=== PATIENT | male | born 1975 | race American Indian/Alaskan Native ===

== ENCOUNTER 2018-04-04 14:08 | Emergency (ER) | payer SELFPAY ==
[2018-04-04 14:17] VITALS: PULSE 84; RESP 18
[2018-04-04] MEDS ORDERED: Dexamethasone 4 mg/1 ml IM STA (15:07)
--- NOTE | 2018-04-04 15:15 | C.PDOC ---
History Of Present Illness 42 year old male presents to the ED complaining of right arm pain for two weeks but worse for the past couple of days. Patient denies any weakness, numbness, or tingling of arm. Denies any trauma or injuries. Reports he does heavy lifting and pushing of boxes at work. Time Seen by Provider: 04/04/18 14:41 Chief Complaint (Nursing): Upper Extremity Problem/Injury History Per: Patient History/Exam Limitations: no limitations Onset/Duration Of Symptoms: Days Current Symptoms Are (Timing): Still Present Quality: "Pain" Exacerbating Factor(s): Movement Past Medical History Reviewed: Historical Data, Nursing Documentation, Vital Signs Vital Signs: Last Vital Signs Temp 97.8 F 04/04/18 14:14 Pulse 84 04/04/18 14:14 Resp 18 04/04/18 14:14 BP 122/85 04/04/18 14:14 Pulse Ox 100 04/04/18 14:14 - Medical History PMH: No Chronic Diseases Surgical History: No Surg Hx Family History: States: No Known Family Hx - Social History Hx Alcohol Use: No Hx Substance Use: Yes ("weed, dust") Review Of Systems Except As Marked, All Systems Reviewed And Found Negative. Musculoskeletal: Positive for: Arm Pain (right) Neurological: Negative for: Weakness, Numbness Physical Exam - Physical Exam Appears: Non-toxic Skin: Warm, Dry Head: Normacephalic Eye(s): bilateral: Normal Inspection Nose: Normal Oral Mucosa: Moist Neck: Normal ROM Chest: Symmetrical Extremity: Normal ROM (limitation of external rotation of right shoulder), Tenderness ((+) tenderness of anterior right shoulder), No Deformity, No Swelling Extremity: Bilateral: Atraumatic, Normal Color And Temperature Pulses: Left Radial: Normal, Right Radial: Normal Neurological/Psych: Oriented x3, Normal Speech, Normal Motor, Normal Sensation, Normal Reflexes Gait: Steady ED Course And Treatment O2 Sat by Pulse Oximetry: 100 (RA) Pulse Ox Interpretation: Normal - Other Rad XR Right Shoulder X-Ray: Viewed By Me, Read By Radiologist Interpretation: Accession No. : [id number]. Patient Name / ID : GOSIA CHERRY / [id number]. Exam Date : 04/04/2018 15:08:41 ( Approved ). Study Comment : Sex / Age : M / 42Y. Creator : Ginette Coleman MD. Dictator : Ginette Coleman MD. 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 Approver2 : Report Date : 04/04/2018 15:24:10. My Comment : . PROCEDURE: Radiographs of the Right Shoulder. HISTORY: SHOULDER PAIN. COMPARISON: No prior. FINDINGS: BONES: No acute displaced fracture. The distal clavicle and underlying ribs appear intact. JOINTS: No acute dislocation. SOFT TISSUES: Soft tissues appear unremarkable. No evidence of radiopaque foreign body. IMPRESSION: No acute displaced fracture or dislocation evident. If symptoms persist or if there is continued clinical concern, x-ray follow-up in 7-10 days should be considered. Medical Decision Making Medical Decision Making: Orders: - Decadron 8mg IM - Toradol 30mg IM - XR right shoulder Shoulder sling applied. Disposition - Disposition Referrals: Laura Swift MD [Staff Provider] - Disposition: HOME/ ROUTINE Disposition Time: 15:48 Condition: STABLE Additional Instructions: Follow up with the Orthopedist within 1-2 days. Return if worsened. Prescriptions: Naproxen [Naprosyn] 500 mg PO BID #20 tab Instructions: Tendonitis (DC) Forms: [facility] (Romanian) - Clinical Impression Clinical Impression: Tendonitis - PA / DIPLOMATIC COURIER / Resident Statement MD/DO has reviewed & agrees with the documentation as recorded. - Scribe Statement The provider has reviewed the documentation as recorded by the Chayoibyeni Zaragoza All medical record entries made by the Chayoibyeni were at my direction and pe rsonally dictated by me. I have reviewed the chart and agree that the record accurately reflects my personal performance of the history, physical exam, medical decision making, and the department course for this patient. I have also personally directed, reviewed, and agree with the discharge instructions and disposition.
--- NOTE | 2018-04-04 15:27 | RAD ---
PROCEDURE: Radiographs of the Right Shoulder HISTORY: SHOULDER PAIN COMPARISON: No prior. FINDINGS: BONES: No acute displaced fracture. The distal clavicle and underlying ribs appear intact. JOINTS: No acute dislocation. SOFT TISSUES: Soft tissues appear unremarkable. No evidence of radiopaque foreign body. IMPRESSION: No acute displaced fracture or dislocation evident. If symptoms persist or if there is continued clinical concern, x-ray follow-up in 7-10 days should be considered.
[2018-04-04 16:05] VITALS: BP 118/79; TEMP 98.4; O2SAT 97
== END 2018-04-04 16:05 | disposition home or self-care (01) ==
LOC: C.ER 14:08
DX: M77.9 Enthesopathy, unspecified (principal)
CPT/HCPCS: 73030; 96372; 99285; J1100; J1885